=== PATIENT | female | born 1995 | race Caucasian/White ===

== ENCOUNTER 2024-12-05 21:28 | Emergency (ER) | payer OTHER, SELFPAY ==
[2024-12-05 21:33] VITALS: BP 108/72; PULSE 73; RESP 16; TEMP 36.5; O2SAT 98; BMI 25.7
--- NOTE | 2024-12-05 21:55 | CRLHL7_ITS ---
For Patients: As a result of the Cures Act, medical imaging exams and procedure reports are released immediately into your electronic medical record. You may view this report before your referring provider. If you have questions, please contact your health care provider. Indication: Left knee injury during softball. Technique: Three views of the left knee. Comparison: None. Findings/Impression: No acute fracture, dislocation, or suspicious osseous lesion. The joint spaces of the knee are maintained without joint space narrowing. Prominent superficial soft tissue swelling overlying the patella may reflect superficial soft tissue contusion. Dictated by Nain Griffiths MD @ 12/05/2024 10:43:11 PM (Electronically Signed)
--- NOTE | 2024-12-05 21:56 | ED.LOWEXIN ---
HPI - Extremity Injury (Lower) General Chief Complaint: Extremity Pain/Injury, Lower Stated Complaint: L knee swollen/painful Time Seen by Provider: 12/05/24 21:29 History of Present Illness HPI Narrative: This 29-year-old female comes in with an injury to her left knee. She was playing softball and states that she slid into a base and felt a little bit of pain at the time but over the next hour so she has developed significant swelling with some bruising. She now is unable to ambulate on this leg and unable to lift it from the bed. She does not report any other injury. Related Data Home Medications ?Medication ?Instructions ?Recorded ?Confirmed No Known Home Medications 12/05/24 12/05/24 Allergies Allergy/AdvReac Type Severity Reaction Status Date / Time No Known Drug Allergies Allergy Verified 12/05/24 21:38 Review of Systems Status of ROS: Reports: 10 or more systems reviewed and unremarkable except as noted in History and below Narrative: Constitutional: No fevers, no weight gain or loss. Eyes: No discharge. No vision changes. HENT: No congestion, no sore throat, no ear pain. Cardiovascular: No chest pain, no palpitations. Respiratory: No shortness of breath, no wheezes, no cough. Gastrointestinal: No abdominal pain, no vomiting, no diarrhea. Genitourinary: No dysuria, no hematuria. Musculoskeletal: Left knee injury as described above. Skin: No rashes, no pruritis. Neurological: No dizziness, weakness, sensory change, speech change. Endo/Heme/Allergies: No bruising or bleeding. No polydipsia. Pysch: no suicidality, no anxiety, no insomnia. All other systems reviewed and are negative. Exam Narrative: Exam Narrative: Constitutional: Well-developed, well-nourished, no acute distress. HEENT: Normocephalic, atraumatic. Neck: Normal range of motion. Nontender. Supple. Heart: Intact distal pulses. Lungs: No chest discomfort. No wheezes, rhonchi, or rales. Abdomen: Nontender. Back: Normal range of motion. Extremities: Left knee has significant swelling with some bruising overlying the patella and inferior to the patella. She is unable to lift her leg from the bed. Skin: Intact. No rash. Warm. No erythema or pallor. Neurologic: No altered sensation. No weakness. Alert and oriented. Psychiatric: No suicidality. No anxiety or depression. No insomnia. Nursing notes and vitals signs are reviewed. Const: Vital Signs, click to edit/add: Vital Signs - 24 hr 12/05/24 21:33 Temperature 97.7 F Pulse Rate [Pulse Oximeter] 73 Respiratory Rate 16 Blood Pressure [Ri ght Upper Arm] 108/72 Pulse Oximetry 98 Oxygen Delivery Me thod Room Air Course Vital Signs Vital signs: Initial Vital Signs Temperature 97.7 F 12/05/24 21:33 Temperature Source Temporal Artery Scan 12/05/24 21:33 Pulse Rate 73 12/05/24 21:33 Pulse Rhythm Regular 12/05/24 21:33 Respiratory Rate 16 12/05/24 21:33 Blood Pressure 108/72 12/05/24 21:33 Blood Pressure Mean 84 12/05/24 21:33 Blood Pressure Position Sitting 12/05/24 21:33 Pulse Oximetry 98 12/05/24 21:33 Oxygen Delivery Method Room Air 12/05/24 21:33 Vital Signs Temperature 97.7 F 12/05/24 21:33 Pulse Rate 73 12/05/24 21:33 Respiratory Rate 16 12/05/24 21:33 Blood Pressure 108/72 12/05/24 21:33 Pulse Oximetry 98 12/05/24 21:33 Oxygen Delivery Method Room Air 12/05/24 21:33 Temperature 97.7 F 12/05/24 21:33 Pulse Rate 73 12/05/24 21:33 Respiratory Rate 16 12/05/24 21:33 Blood Pressure 108/72 12/05/24 21:33 Pulse Oximetry 98 12/05/24 21:33 Oxygen Delivery Method Room Air 12/05/24 21:33 MDM - Extremity Injury (Lower) MDM Narrative Medical decision making narrative: This patient comes in reporting left knee pain and swelling. She did not have any particular event while playing softball that triggered pain in her knee but she noticed over the course of an hour so that her knee became more painful and swollen. An x-ray of her knee is obtained and shows no sign of fracture dislocation. She does have soft tissue swelling that is more likely bleeding in the tissue. This would seem to make sense with her description of the course of events happening without any particular significant injury event. The patient did receive crutches and Instym[employer] prescription for [place]. She resides in the [facility] and will follow-up with orthopedic clinic for ongoing evaluation and treatment. Imaging Data XR L Knee: Radiologist's impression: Findings/Impression: No acute fracture, dislocation, or suspicious osseous lesion. The joint spaces of the knee are maintained without joint space narrowing. Prominent superficial soft tissue swelling overlying the patella may reflect superficial soft tissue contusion. Discharge Plan Discharge Clinical Impression: Hematoma Patient Disposition: Home, Self-Care Condition: Stable Additional Instructions: Use pain medicine and crutches as needed. Follow-up with orthopedic clinic for further evaluation and treatment. Prescriptions: No Action No Known Home Medications Follow Up/Referrals: Provider,Not a Local [Primary Care Provider, Family Practice] Stand Alone Forms: [employer] Info Instructions
== END 2024-12-05 23:28 | disposition home or self-care (01) ==
PROVIDERS: Emergency Provider Emergency Medicine Emergency Medical Services
DX: S80.02XA Contusion of left knee, initial encounter (principal); X58.XXXA Exposure to other specified factors, initial encounter; Y93.64 Activity, baseball
CPT/HCPCS: 73562; 99283; 99284